=== PATIENT | male | born 1965 | race Caucasian/White ===

== ENCOUNTER 2017-08-04 13:36 | Outpatient (CLI) | payer BC ==
[2017-08-04] MEDS ORDERED: Iopamidol 370 76% 100 ML VIAL ONE (14:50)
== END 2017-08-04 13:37 | disposition home or self-care (01) ==
LOC: BICCT 13:36
PROVIDERS: ATTEND Specialist
DX: R10.32 Left lower quadrant pain (principal); K40.90 Unilateral inguinal hernia, without obstruction or gangrene, not specified as recurrent
CPT/HCPCS: 72193; 76870; 93976

== ENCOUNTER 2019-10-07 08:17 | Emergency (ER) | payer BC ==
[2019-10-07] MEDS ORDERED: Adenosine 6 MG/2 ML VIAL ONE ×2 (08:27→08:29)
[2019-10-07] MEDS ORDERED: Metoprolol Tartrate 5 MG/5 ML VIAL ONE (08:35)
[2019-10-07 08:52] LABS: #Basophils 0.1 thou/uL (0.0-0.2); #Eosinphils 0.3 thou/uL (0.0-0.7); #Lymphocytes 3.7 thou/uL (1.20-3.40); #Monocytes 0.6 thou/uL (0.11-0.59); %Basophils 0.9 % (0.0-1.0); %Eosinophils 3.5 % (0.0-10.0); %Lymphocytes 48.3 % (21.0-51.0); %Monocytes 8.1 % (0.0-10.0); %Neutrophils 39.2 % (42.0-75.0); Hemoglobin 15.3 g/dL (14.0-18.0); Mean Corpuscular HGB CONC 33.2 g/dL (32.0-36.0); Mean Corpuscular Hemoglobin 30.8 pg (27.0-31.0); Mean Corpuscular Volume 92.7 fL (78.0-98.0); Mean Platelet Volume 7.3 fL (7.4-10.4); Platelet Count 315 thou/uL (130-400); RBC Distribution Width 12.4 % (11.5-14.5); Red Blood Cell (RBC) Count 4.99 mill/uL (4.70-6.10); White Blood Cell (WBC) Count 7.6 thou/uL (4.8-10.8)
[2019-10-07 09:16] LABS: ALT (SGPT) 22 U/L (8-55); AST (SGOT) 23 U/L (5-34); Albumin 4.2 g/dL (3.5-5.0); Alkaline Phosphatase 51 U/L (40-110); Anion Gap 17 mmol/L (10-20); BUN (Urea Nitrogen) 16 mg/dL (8.4-25.7); Bilirubin, Total 0.5 mg/dL (0.2-1.2); Calc. Creatinine Clearance 0 mL/min (70-130); Calcium 9.3 mg/dL (7.8-10.44); Carbon Dioxide 19 mmol/L (22-29); Chloride 108 mmol/L (98-107); Estimated GFR-MDRD 52; Globulin 2.6 g/dL (2.4-3.5); Glucose 135 mg/dL (70-105); Magnesium 2.2 mg/dL (1.6-2.6); Potassium 4.2 mmol/L (3.5-5.1); Protein, Total 6.8 g/dL (6.0-8.3); Sodium 140 mmol/L (136-145)
== END 2019-10-07 10:26 | disposition home or self-care (01) ==
LOC: ERS 08:17
DX: I47.1 Supraventricular tachycardia (principal); Z79.82 Long term (current) use of aspirin
CPT/HCPCS: 80053; 83735; 84484; 85025; 93005; 96374; 96375; J0153

== ENCOUNTER 2019-12-08 05:59 | Day surgery (SDC) | payer BC ==
[2019-12-06 16:05] VITALS: BMI 35.2
[2019-12-08] MEDS ORDERED: PROPOFOL 40 ML ONE (06:52)
[2019-12-08] MEDS ORDERED: Lidocaine 1% PF 5 ML VIAL ONE (07:50)
--- NOTE | 2019-12-08 12:00 | CCLSPC ---
PROCEDURE PERFORMED: Transesophageal echo. PREPROCEDURE DIAGNOSIS: Cryptogenic stroke and positive bubble study and transthoracic echo. POSTPROCEDURE DIAGNOSIS: Patent foramen ovale. The Anesthesiology Department provided with sedation for the patient. Please see their notes for details. After adequate sedation was achieved, the transesophageal probe was inserted into the mouth and into the esophagus. Multiplanar views were then obtained. FINDINGS: Left ventricle is normal in size with normal wall thickness. Systolic function is normal. EF estimated at 50% to 55%. Left atrium is normal size with no evidence of mass or thrombus. Left atrial appendage is patent. Right atrium is normal in size. There is a prominent eustachian valve. The interatrial septum has a patent foramen ovale. This patent foramen ovale is very close to the aortic root and has minimal lip on the aortic side of the septum. Agitated saline study was positive for shunt with mostly left to right shunt. Minimal right to left, but it is there. Color Doppler also shows mostly left to right shunt. The right ventricle is normal size, normal systolic function. Aortic valve is structurally normal. No stenosis. Mild aortic insufficiency. Pulmonary valve is structurally normal with mild PI. Mitral valve is structurally normal. There is mild MR. No stenosis. Tricuspid valve is structurally normal. There is mild TR. No stenosis. Thoracic aorta has grade 1 out of 5 atherosclerotic disease. CONCLUSIONS: 1. Normal systolic function, EF at 50% to 55%. 2. Mild AI. 3. Mild FL. 4. Mild MR. 5. Mild TR. 6. Prominent eustachian valve. 7. Patent foramen ovale with positive agitated saline study as well as color Doppler. Mostly left to right shunting, but there is some back and forth shunting. 8. Defect is very close to the aortic cusp with minimal lip for catheter based closure. Job ID: [id number]
== END 2019-12-08 09:03 | disposition home or self-care (01) ==
LOC: CCL 05:59
PROVIDERS: ATTEND Internal Medicine Cardiovascular Disease
PROC: B245ZZ4 Ultrasonography of Left Heart, Transesophageal (ICD-10-PCS; principal; 2019-12-08)
DX: Q21.1 Atrial septal defect (principal); I63.9 Cerebral infarction, unspecified; G45.9 Transient cerebral ischemic attack, unspecified; I47.1 Supraventricular tachycardia; Z79.82 Long term (current) use of aspirin; Z79.899 Other long term (current) drug therapy
CPT/HCPCS: 93312; J2704

== ENCOUNTER 2019-12-26 09:28 | Day surgery (SDC) | payer BC ==
[~2019-12-26 09:28] MED LIST: PROPOFOL 200 MG/20 ML VIAL ONE
[2019-12-26] MEDS ORDERED: Lidocaine 1% (PF) 30 ML VIAL ONE (12:32)
[2019-12-26] MEDS ORDERED: Propofol 1,000 MG/100 ML VIAL IV ONE ×2 (12:46→14:50)
[2019-12-26] MEDS ORDERED: Heparin 10,000 UNITS/ 10 ML VIAL ONE (12:50)
[2019-12-26] MEDS ORDERED: Fentanyl 100 MCG/2 ML VIAL ONE ×2 (12:54→14:44)
[2019-12-26] MEDS ORDERED: PROPOFOL 20 ML ONE (13:27)
[2019-12-26] MEDS ORDERED: Isoproterenol 0.2 MG/1 ML AMP ONE (13:52)
[2019-12-26] MEDS ORDERED: PROPOFOL 40 ML ONE ×2 (14:13→14:41)
--- NOTE | 2019-12-27 13:25 | OP ---
DATE OF PROCEDURE: 12/26/2019 PROCEDURE PERFORMED: Electrophysiology study and radiofrequency ablation. REASON FOR PROCEDURE: Mr. Katz is a 54-year-old male with prior history of patent foramen ovale by GERMAN, normal LVEF, with supraventricular tachyarrhythmia requiring adenosine termination in the ER on a previous visit, here for EP study and ablation. DESCRIPTION OF PROCEDURE: The patient received deep sedation by Anesthesia specialist. After adequate level of sedation achieved, the left and right femoral venous area was prepped, draped, anesthetized using subcutaneous lidocaine. Under ultrasound guidance, both femoral veins were cannulated. From the left femoral vein, 6 and 8-Burkinan sheaths were used to advance a DECANAV and an Octopolar mapping catheter. With a DECANAV catheter 3D map for right atrium, His bundle, CS position were obtained. Also, the foramen ovale and left atrial map was also performed. Eventually, the DECANAV catheter was placed in the CS and it was used for pacing maneuvers. Also, the Octopolar catheter was advanced to the right ventricle, His bundle, and right atrial position. Pacing, mapping, and recording were performed in each location including mapping and pacing the left atrium from the CS. Following findings were noted. Baseline rhythm was sinus rhythm with RR 1008 milliseconds, VA 198 milliseconds, QRS 100 milliseconds, QT 460 milliseconds. The AH was measured 152 milliseconds, HV is 48 milliseconds. The AV Wenckebach cycle length was measured at 490 milliseconds. Retrograde Wenckebach cycle was 280 milliseconds. Concentric retrograde VA conduction was seen. AV alis ERP at baseline 600/300 milliseconds noted. Concentric retrograde VA conduction was seen and dual AV alis physiology was present at baseline. Isuprel was administered with burst atrial pacing induced transient atrial fibrillation which self-terminated. Also, we were able to nonsustained narrow complex supraventricular tachycardia with very short VA timing about 4 milliseconds, which was AV alis reentrant tachycardia. On the right femoral venous access, an 8-Burkinan short sheath was used to advance a 4 mm standard ablation catheter to the right atrium. 3D map of the right atrium was obtained, delineating the His bundle and the slow pathway area. Of note, the slow pathway had very sharp potential but geographic was very distinct from the His bundle. Multiple porter below the slow pathway area were performed, and did not induce junctional beats but eventually, the catheter was moved up to the slow pathway area with a sharper slow pathway potential. At this point, we were able to induce slow junctional beats during ablation with no AV block. A total of 36 lesions delivered. Total duration was 70 minutes and 54 seconds. The settings were 50 martins and 60 degrees. No AV block was seen. After this Isuprel was re-initiated. With multiple burst atrial pacing maneuvers, we were not able to reinduce the tachycardia. In the end the Wenckebach cycle length was 360 milliseconds. The cardiac silhouette did not change throughout the procedure. Hemodynamically, the patient remained stable. Catheter was removed from the body and the sheaths were closed with Vascade closure device on all three vascular access sites. The patient tolerated the procedure well. No complications noted. CONCLUSION: 1. Inducible AV alis reentrant tachycardia. 2. Slow pathway modification eliminated inducibility. 3. Patent foramen ovale again noted. PLAN: Continue monitoring for recurrent arrhythmias. Job ID: [id number]
--- NOTE | 2019-12-28 09:45 | EKG ---
Test Reason : POSTOP Blood Pressure : / mmHG Vent. Rate : 064 BPM Atrial Rate : 064 BPM P-R Int : 222 ms QRS Dur : 098 ms QT Int : 428 ms P-R-T Axes : 054 003 032 degrees QTc Int : 441 ms Sinus rhythm with 1st degree A-V block Otherwise normal ECG When compared with ECG of 23-DEC-2019 09:08, MS interval has increased Confirmed by AMANDA JEAN-BAPTISTE M.D. ([id number]) on 12/28/2019 9:45:34 AM Referred By: [facility] Confirmed By:AMANDA JEAN-BAPTISTE M.D.
== END 2019-12-26 19:45 | disposition home or self-care (01) ==
LOC: CCL 09:28
PROVIDERS: ATTEND Internal Medicine Cardiovascular Disease
PROC: 4A0234Z Measurement of Cardiac Electrical Activity, Percutaneous Approach (ICD-10-PCS; principal; 2019-12-26)
PROC: 4A023FZ Measurement of Cardiac Rhythm, Percutaneous Approach (ICD-10-PCS; principal; 2019-12-26)
PROC: 02583ZZ Destruction of Conduction Mechanism, Percutaneous Approach (ICD-10-PCS; principal; 2019-12-26)
PROC: 02K83ZZ Map Conduction Mechanism, Percutaneous Approach (ICD-10-PCS; principal; 2019-12-26)
DX: I47.1 Supraventricular tachycardia (principal); Q21.1 Atrial septal defect; Z79.82 Long term (current) use of aspirin; Z79.899 Other long term (current) drug therapy; Z86.73 Personal history of transient ischemic attack (TIA), and cerebral infarction without residual deficits
CPT/HCPCS: 76942; 93005; 93010; 93613; 93621; 93623; 93653; C1730; C1732; J1644; J2001; J2704; J3010

== ENCOUNTER 2021-10-18 14:57 | Outpatient (CLI) | payer BC | END 2021-10-18 14:58 | disposition home or self-care (01) | LOC: BICRAD 14:57 | PROVIDERS: ATTEND Nurse Practitioner Family | DX: R51.9 Headache, unspecified (principal) | CPT/HCPCS: 70150 ==